=== PATIENT | female | born 1970 | race Caucasian/White ===

== ENCOUNTER 2016-11-02 23:19 | Emergency (ER) | payer BC ==
[2016-11-02] MEDS ORDERED: NS 0.9% 1000 ML* 1,000 ML IV ONE (23:54)
[2016-11-02] MEDS ORDERED: Ondansetron INJ* 2 MG/ML VIAL IV ONE (23:54)
[2016-11-02] MEDS ORDERED: Morphine INJ* 2 MG/ML 1 ML SYRINGE IV ONE (23:54)
[2016-11-03 00:22] LABS: Hematocrit 44 % (35-47); Hemoglobin 15.3 g/dl (12.0-16.0); Mean Corpuscular HGB Conc 35 g/dl (31-36); Mean Corpuscular Hemoglobin 33 pg (27-31); Mean Corpuscular Volume 95 fL (80-97); Mean Platelet Volume 7 um3 (7.4-10.4); Red Blood Count 4.61 10^6/ul (4.0-5.4); Red Cell Distribution Width 12 % (10.5-15); White Blood Count 11.2 10^3/ul (3.5-10.8)
--- NOTE | 2016-11-03 00:35 | ED ---
Garrison King Thomas, scribed for Felix Fernandez MD on 11/02/16 at 2357 . Abdominal Pain/Female - HPI Summary HPI Summary: The pt is a 46 y/o F presenting to the ED c/o 12/04 RUQ abd pain that began today at 10:00. She was not exerting at onset, and it has worsened since onset. She denies nausea at this time. She took ibuprofen BANQUET CHEF for the pain. She claims that she had an endoscopy three months ago. NKDA. - History of Current Complaint Chief Complaint: EDFlankPain Stated Complaint: RIGHT FLANK PAIN Time Seen by Provider: 11/02/16 23:52 Hx Obtained From: Patient Hx Last Menstrual Period: 11/29/15 Onset/Duration: Lasting Hours - onset 22:00 today, Still Present, Worse Since - onset Timing: Hours - onset 22:00 Severity Currently: Severe Pain Intensity: 8 Pain Scale Used: 0-10 Numeric Location: Discrete At: RUQ Associated Signs and Symptoms: Negative: Nausea Allergies/Adverse Reactions: Allergies Allergy/AdvReac Type Severity Reaction Status Date / Time No Known Allergies Allergy Verified 11/02/16 23:45 PMH/Surg Hx/FS Hx/Imm Hx Previously Healthy: No Endocrine/Hematology History: Denies: Hx Anticoagulant Therapy, Hx Diabetes, Hx Thyroid Disease Cardiovascular History: Denies: Hx Hypertension, Hx Pacemaker/ICD Respiratory History: Denies: Hx Asthma, Hx Chronic Obstructive Pulmonary Disease (COPD) GI History: Reports: Other GI Disorders - "gall bladder problem" History: Denies: Hx Renal Disease Sensory History: Denies: Hx Hearing Aid Neurological History: Denies: Hx Dementia, Hx Seizures, Other Neuro Impairments/Disorders Psychiatric History: Denies: Hx Panic Disorder, Hx Substance Abuse - Surgical History Surgery Procedure, Year, and Place: TUBAL Infectious Disease History: No Infectious Disease History: Denies: Hx Hepatitis, Hx Human Immunodeficiency Virus (HIV), Traveled Outside the [place] in Last 30 Days - Family History Known Family History: Positive: Hypertension - Social History Alcohol Use: None Substance Use Type: Reports: None Smoking Status (MU): Heavy Every Day Tobacco Smoker Type: Cigarettes Amount Used/How Often: 1/2 - 3/4 ppd Review of Systems Constitutional: Negative Negative: Fever Eyes: Negative ENT: Negative Cardiovascular: Negative Respiratory: Negative Positive: Abdominal Pain - RUQ, 12/04, onset today at 22:00. Negative: Nausea Genitourinary: Negative Musculoskeletal: Negative Skin: Negative Neurological: Negative Psychological: Normal All Other Systems Reviewed And Are Negative: Yes Physical Exam Triage Information Reviewed: Yes Vital Signs On Initial Exam: Initial Vitals Temp Pulse Resp BP Pulse Ox 98.6 F 85 16 146/101 100 11/02/16 23:27 11/02/16 23:27 11/02/16 23:27 11/02/16 23:27 11/02/16 23:27 Vital Signs Reviewed: Yes Appearance: Positive: Well-Appearing, Pain Distress - mild discomfort Skin: Positive: Warm Head/Face: Positive: Normal Head/Face Inspection Eyes: Positive: ANTONIO ENT: Positive: Hearing grossly normal Neck: Positive: Supple Respiratory/Lung Sounds: Positive: Breath Sounds Present Cardiovascular: Positive: RRR Abdomen Description: Positive: Soft, Other: - mild diffuse abd tenderness. Negative: Distended, Guarding Bowel Sounds: Positive: Present Musculoskeletal: Positive: Strength/ROM Intact Neurological: Positive: Alert, Oriented to Person Place, Time Psychiatric: Positive: Affect/Mood Appropriate Diagnostics - Vital Signs Vital Signs Temp Pulse Resp BP Pulse Ox 11/02/16 23:43 98.6 F 75 18 147/83 98 11/02/16 23:27 98.6 F 85 16 146/101 100 - Laboratory Lab Results: Lab Results 11/03/16 Range/Units 00:03 WBC 11.2 H (3.5-10.8) 10^3/ul RBC 4.61 (4.0-5.4) 10^6/ul Hgb 15.3 (12.0-16.0) g/dl Hct 44 (35-47) % MCV 95 (80-97) fL MCH 33 H (27-31) pg MCHC 35 (31-36) g/dl RDW 12 (10.5-15) % Plt Count 305 (150-450) 10^3/ul MPV 7 L (7.4-10.4) um3 Neut % (Auto) 55.9 (38-83) % Lymph % (Auto) 34.7 (25-47) % Crenshaw % (Auto) 7.1 (1-9) % Eos % (Auto) 1.7 (0-6) % Baso % (Auto) 0.6 (0-2) % Absolute Neuts (auto) 6.2 (1.5-7.7) 10^3/ul Absolute Lymphs (auto) 3.9 (1.0-4.8) 10^3/ul Absolute Monos (auto) 0.8 (0-0.8) 10^3/ul Absolute Eos (auto) 0.2 (0-0.6) 10^3/ul Absolute Basos (auto) 0.1 (0-0.2) 10^3/ul Absolute Nucleated RBC 0.01 10^3/ul Nucleated RBC % 0.1 Result Diagrams: 11/03/16 00:03 11/03/16 00:03 Lab Statement: Any lab studies that have been ordered have been reviewed, and results considered in the medical decision making process. - CT CT Abd/Pel CT Interpretation: Positive (See Comments) - Cholelithiasis. A calculus is noted in the gallbladder neck/cystic duct. No mural thickening or pericholecystic fluid noted. No inflammatory process of the abdomen or pelvis. No abdominal mass, adenopathy, or collection seen. CT Interpretation Completed By: Radiologist Re-Evaluation - Re-Evaluation First Eval Re-Evaluation Time: 03:17 Change: Unchanged Second Eval Re-Evaluation Time: 04:11 Change: Improved - essentially pain free, tolerating po Abdominal Pain Fem Course/Dx - Diagnoses Provider Diagnoses: Biliary colic Discharge - Discharge Plan Condition: Improved Disposition: HOME Patient Education Materials: Biliary Colic (ED) Referrals: [facility] [place] [facility]FERRAL [Outside] - 3 Days The documentation as recorded by the Garrison moreno Thomas accurately reflects the service I personally performed and the decisions made by , Felix Fernandez MD.
[2016-11-03 00:36] LABS: Albumin 4.2 g/dL (3.2-5.2); BUN/Creatinine Ratio 15.4 (8-20); C Reactive Protein 3.13 mg/L (< 5.00); Calcium 9.2 mg/dL (8.6-10.3); EGFR African American 86.4 (>60); EGFR Non-African American 67.2 (>60); Globulin 2.7 g/dL (2-4); Potassium 3.5 mmol/L (3.5-5.0); Total Bilirubin 0.3 mg/dL (0.2-1.0); Total Protein 6.9 g/dL (6.4-8.9)
[2016-11-03] MEDS ORDERED: Morphine INJ* 4 MG/ML 1 ML SYRINGE IV ONE (01:06)
[2016-11-03] MEDS ORDERED: NS 0.9% 1000 ML* 1,000 ML IV ONE (01:07)
[2016-11-03] MEDS ORDERED: Iohexol 300* (CONTRAST) 10 ML SDV IV ONE (01:25)
[2016-11-03] MEDS ORDERED: HYDROmorphone* 1 MG/ML 1 ML SYR IV SLOW PU ONE (03:09)
[2016-11-03 03:10] LABS: Urine Bilirubin Negative (Negative); Urine Glucose Negative (Negative); Urine Nitrite Negative (Negative)
[2016-11-03 04:15] VITALS: BP 115/78
--- NOTE | 2016-11-03 07:45 | RAD ---
CLINICAL HISTORY: Abdominal pain COMPARISON: None TECHNIQUE: Multiple contiguous axial CT scans were obtained of the abdomen and pelvis after the administration of intravenous contrast. Coronal and sagittal multiplanar reformations are submitted for review. Oral contrast was administered. Delayed images were obtained through the abdomen and pelvis. FINDINGS: LUNG BASES: The lung bases are clear. LIVER: The liver is diffusely low in attenuation compared to the spleen. There are multiple low-attenuation hepatic parenchymal lesions that are too small to definitively characterize. BILE DUCTS: There is no intrahepatic or extrahepatic biliary dilatation. GALLBLADDER: Multiple gallstones are noted. This includes a calculus at the gallbladder neck. There is no pericholecystic inflammatory change. PANCREAS: The pancreas is normal, without mass or ductal dilatation. SPLEEN: Normal in size and appearance. UPPER GI TRACT: Evaluation of the gastrointestinal tract is limited by incomplete gastric distention. The upper GI tract is unremarkable. SMALL BOWEL AND MESENTERY: The small bowel is normal in contour, course, and caliber. There is no obstruction or dilatation. COLON: The colon is normal in contour, course, caliber. There is no pericolonic inflammatory change. There is a tubular, vermiform, hollow viscus that is blind ending, and originates from the cecum, consistent with a normal appendix. There is no periappendiceal inflammatory change. This is best seen on coronal images 36 through 49. ADRENALS: Normal bilaterally. KIDNEYS: The kidneys are normal in shape, size, contour, and axis. There is no hydronephrosis or nephrolithiasis. BLADDER: The bladder is smooth in contour. PELVIC ORGANS: The uterus and adnexa are grossly normal for technique. AORTA: The aorta is normal. IVC: Unremarkable LYMPH NODES: There is no lymphadenopathy by size criteria. ABDOMINAL WALL: There is no evidence for abdominal wall hernia. BONES AND SOFT TISSUES: There are mild diffuse degenerative changes. OTHER: None IMPRESSION: 1. CHOLELITHIASIS WITHOUT PERICHOLECYSTIC INFLAMMATORY CHANGE TO SUGGEST ACUTE CHOLECYSTITIS. 2. FATTY INFILTRATION OF LIVER. 3. MULTIPLE LOW-ATTENUATION HEPATIC PARENCHYMAL LESIONS. THESE ARE TOO SMALL TO DEFINITIVELY CHARACTERIZE BUT, IN THE ABSENCE OF A HISTORY OF MALIGNANCY, THESE LIKELY REPRESENT SMALL CYSTS VERSUS HEMANGIOMAS
== END 2016-11-03 04:15 | disposition home or self-care (01) ==
LOC: ED 23:19
DX: K80.50 Calculus of bile duct without cholangitis or cholecystitis without obstruction (principal); R10.11 Right upper quadrant pain; F17.210 Nicotine dependence, cigarettes, uncomplicated
CPT/HCPCS: 36415; 74177; 80053; 81003; 83605; 83690; 85025; 86140; 96374; 96375; 99284; J1170; J2270; J2405; Q9967

== ENCOUNTER 2016-11-12 12:09 | Day surgery (SDC) | payer BC ==
[~2016-11-12 12:09] MED LIST: Buffered Lidocaine 0.9% SYRIN* 5 ML/SYR SYRINGE INTRADERM ONE; Bupivacaine 0.25% EPI 200,000* 30 ML SDV ONE; ceFAZolin 2 GM PREMIX(*) 2 GM/50 ML BAG IVPB ONE
[2016-11-12] MEDS ORDERED: Buffered Lidocaine 0.9% SYRIN* 5 ML/SYR SYRINGE ONE (12:10)
[2016-11-12] MEDS ORDERED: fentaNYL* 50 MCG/ML 2 ML VIAL (100 MCG VIAL) ONE ×2 (14:40→15:33)
[2016-11-12] MEDS ORDERED: Midazolam* 1 MG/ML 2 ML VIAL (2 MG) ONE (14:41)
[2016-11-12] MEDS ORDERED: Bupivacaine 0.25% EPI 200,000* 30 ML SDV ONE (14:48)
[2016-11-12] MEDS ORDERED: Lidocaine 2% PF * 5 ML VIAL ONE (15:07)
[2016-11-12] MEDS ORDERED: Propofol* 10 MG/ML 20 ML BTL IV PUSH ONE (15:07)
[2016-11-12] MEDS ORDERED: Ketorolac INJ* 30 MG/ML 1 ML VIAL ONE (15:07)
[2016-11-12] MEDS ORDERED: Rocuronium* 10 MG/ML VIAL ONE (15:07)
[2016-11-12] MEDS ORDERED: Famotidine IV* 10 MG/ML 2 ML (20 mg) ONE (15:07)
[2016-11-12] MEDS ORDERED: Dexamethasone IV* 4 MG/ML 1 ML (4 MG) ONE (15:07)
[2016-11-12] MEDS ORDERED: Desflurane* 240 ML INH ONE (15:23)
[2016-11-12] MEDS ORDERED: HYDROcodone/ACETAMIN 5-325 MG* 1 TAB PO PRN (15:26)
[2016-11-12] MEDS ORDERED: DiMENhydriNATE IV* 50 MG/ML VIAL IV PUSH PRN (15:26)
[2016-11-12] MEDS ORDERED: fentaNYL* 50 MCG/ML 2 ML VIAL (100 MCG VIAL) IV PRN (15:26)
[2016-11-12] MEDS ORDERED: PROCHLORPERAZINE INJ 5 MG/ML 2 ML VIAL IV PRN (15:26)
[2016-11-12] MEDS ORDERED: Ondansetron INJ* 2 MG/ML VIAL IV PRN (15:26)
[2016-11-12] MEDS ORDERED: Acetaminophen TAB* 325 MG PO PRN (15:26)
[2016-11-12] MEDS ORDERED: HYDROmorphone* 1 MG/ML 1 ML SYR IV PRN (15:26)
[2016-11-12] MEDS ORDERED: Labetalol IV* 5 MG/ML 20 ML VIAL ONE (16:07)
--- NOTE | 2016-11-12 16:27 | PN ---
Progress Note - Progress Note Date of Service: 11/12/16 Note: Brief Operative Note: Preop and Postop Dx: symptomatic cholelithiasis Procedure: laparoscopic cholecystectomy Anesthesia: GET Surgeon: Lila Asst: LUCILA Min; JONNY Christian EBL: < 20 ml Fluids: 1300 ml RL Drains:none Specimen: gallbladder Findings: dictated
[2016-11-12 17:29] VITALS: BP 117/78
--- NOTE | 2016-11-27 06:08 | OP ---
DATE OF OPERATION: 11/12/16 [facility] DATE OF : 74 SURGEON: Brennen Sharp MD APPLICATION SECURITY SPECIALIST: LUCILA Milligan ANESTHESIOLOGIST: Yakov Maxwell MD ANESTHESIA: General anesthesia. PRE-OP DIAGNOSIS: Symptomatic cholelithiasis. POST-OP DIAGNOSIS: Symptomatic cholelithiasis. OPERATIVE PROCEDURE: Laparoscopic cholecystectomy. ESTIMATED BLOOD LOSS: Less than 20 cc blood loss. FLUIDS: 1300 cc of lactated Ringers. SPECIMEN: Gallbladder. DRAINS: None. DESCRIPTION OF PROCEDURE: The patient was identified in the preoperative area, marked, brought to the operating room, placed on the operating table in the supine position. Preoperative antibiotics were given. Sequential devices were placed on bilateral lower extremities. General anesthesia was induced. The patient's abdomen was prepped and draped in the standard surgical fashion. A time-out was performed. Folds of the umbilicus were elevated anteriorly. A Veress needle was inserted into the abdominal cavity, which was then allowed to insufflate to a pressure of 15 mmHg. The patient tolerated the insufflation well. Incision was made over the Veress needle, which was then removed and then a 5-mm trocar inserted into the abdomen. Laparoscope was inserted through this, and there was no evidence of injury from the trocar incision or from the Veress needle. Review of the abdomen showed no other findings. The additional trocars were placed in the following position; a 12 mm in the subxiphoid area and two 5 mm along the right costal margin. Tables were repositioned. The fundus of the gallbladder was grasped and elevated above the liver. Infundibulum was grasped and retracted towards the right lower quadrant. This gave us critical view. Peritoneum off the lateral aspect of the gallbladder was taken with electrocautery. Medial aspect similarly taken. Cystic duct, cystic artery were isolated in a typical fashion. There were triply clipped and ligated. The gallbladder was removed from the liver bed, placed in an endoscopic retrieval bag and brought out through the subxiphoid port site. Review of the cystic duct stump and cystic artery showed no bleeding or bile. The abdomen was allowed to collapse. The patient was positioned back in neutral. Trocars were removed under direct vision. All 4 skin incisions were reapproximated with 4-0 Monocryl subcuticular sutures. Steri-Strips and sterile dressing were applied. The patient tolerated the procedure well and and transferred to the PACU in stable condition. [id number]/[facility] #: [id number] MTDD
== END 2016-11-12 17:45 | disposition home or self-care (01) ==
LOC: OR 12:09
PROVIDERS: ATTEND Surgery
DX: K80.10 Calculus of gallbladder with chronic cholecystitis without obstruction (principal); F17.200 Nicotine dependence, unspecified, uncomplicated
CPT/HCPCS: 88304; A9270-GY; J0690; J1100; J1885; J2250; J2704; J3010

== ENCOUNTER 2018-05-27 15:17 | Emergency (ER) | payer BC ==
[2018-05-27 15:26] VITALS: BP 148/90
[2018-05-27] MEDS ORDERED: Fluorescein Sodium TOPICAL* 1 MG TEST STRIP OPHTHALMIC ONE (15:33)
[2018-05-27] MEDS ORDERED: Tetracaine 0.5% OPTH.SOL 4 ML* 1 DROP BTL RIGHT EYE ONE (15:33)
--- NOTE | 2018-05-27 15:37 | UC ---
Eye Complaint HPI - HPI Summary HPI Summary: 47-year-old woman comes in with a chief complaint of right eye irritation. This started yesterday evening after she got home from work. 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 Not wear contacts. No blurry vision. The upper eyelid is swollen and she does have some crusting on her right eye this morning when she woke up. Crusting of better when she wiped it off. - History of Current Complaint Chief Complaint: UCEye Stated Complaint: EYE IRRITATION Time Seen by Provider: 05/27/18 15:28 Hx Last Menstrual Period: 05/12/18 Pain Intensity: 1 - Allergies/Home Medications Allergies/Adverse Reactions: Allergies Allergy/AdvReac Type Severity Reaction Status Date / Time No Known Allergies Allergy Verified 05/27/18 15:25 PMH/Surg Hx/FS Hx/Imm Hx Previously Healthy: Yes Other History Of: Negative For: Anticoagulant Therapy - Surgical History Surgical History: Yes Surgery Procedure, Year, and Place: TUBAL LIGATION, CHOLECYSTECTOMY - Family History Known Family History: Positive: Hypertension - Social History Alcohol Use: None Substance Use Type: None Smoking Status (MU): Current Every Day Smoker Type: Cigarettes Amount Used/How Often: 1 PPD Household Exposure Type: Cigarettes Review of Systems All Other Systems Reviewed And Are Negative: Yes Constitutional: Positive: Negative Skin: Positive: Negative Eyes: Positive: Drainage, Eye Redness, Other - SEE HPI ENT: Positive: Negative Respiratory: Positive: Negative Cardiovascular: Positive: Negative Gastrointestinal: Positive: Negative Motor: Positive: Negative Neurovascular: Positive: Negative Musculoskeletal: Positive: Negative Neurological: Positive: Negative Psychological: Positive: Negative Is Patient Immunocompromised?: No Physical Exam Triage Information Reviewed: Yes Appearance: Well-Appearing, No Pain Distress, Well-Nourished Vital Signs: Initial Vital Signs Temp 97.9 F 05/27/18 15:20 Pulse 83 05/27/18 15:20 Resp 16 05/27/18 15:20 BP 148/90 05/27/18 15:20 Pulse Ox 100 05/27/18 15:20 Vital Signs Reviewed: Yes Eyes: Positive: Conjunctiva Inflamed, Discharge, Other: - The upper eyelid is slightly swollen. No obvious stye at this time. There is clear drainage. Scleral injection.PERRLA/EOMI. used tetracaine to numb the eye and used foreseen stain and I did not see any uptake or any foreign body on my examination. ENT: Positive: Normal ENT inspection. Negative: Nasal congestion, Nasal drainage Neck exam: Normal Neck: Positive: Supple Respiratory: Positive: No respiratory distress Musculoskeletal Exam: Normal Musculoskeletal: Positive: Strength Intact, ROM Intact Neurological Exam: Normal Neurological: Positive: Alert, Muscle Tone Normal Psychological Exam: Normal Psychological: Positive: Normal Response To Family, Age Appropriate Behavior Skin Exam: Normal Eye Complaint Course/Dx - Course Course Of Treatment: I did not see any corneal abrasion however given the history is the most likely cause of the patient's eye irritation and discharge. Other possibilities include an early stye or a and infectious conjunctivitis. The treat with tobramycin eyedrops. We discussed that if the eyelid swells more in appearance stye that she can use warm compresses. Overall if her eye is not getting better she will follow up with ophthalmology. - Differential Dx/Diagnosis Provider Diagnosis: Conjunctivitis Discharge - Sign-Out/Discharge Documenting (check all that apply): Patient Departure All imaging exams completed and their final reports reviewed: No Studies - Discharge Plan Condition: Stable Disposition: HOME Prescriptions: Tobramycin 0.3% OPHTH.LYNDSEY* 1 drop RIGHT EYE Q4H #1 btl Patient Education Materials: Conjunctivitis (ED) Referrals: [facility] [Provider Group] Additional Instructions: FOLLOW UP WITH OPHTHALMOLOGY IF NOT COMPLETELY IMPROVED. GET RECHECKED SOONER WITH ANY WORSENING OF YOUR CONDITION OR QUESTIONS OR CONCERNS. - Billing Disposition and Condition Condition: STABLE Disposition: Home
== END 2018-05-27 16:10 | disposition home or self-care (01) ==
LOC: UCEAST 15:17
DX: H10.9 Unspecified conjunctivitis (principal); F17.210 Nicotine dependence, cigarettes, uncomplicated
CPT/HCPCS: 99212; A9270-GY; G0463

== ENCOUNTER 2018-12-26 11:05 | Emergency (ER) | payer BC ==
--- NOTE | 2018-12-26 11:08 | UC ---
Lower Extremity/Ankle HPI - HPI Summary HPI Summary: 48 yo female presents with LEFT heel and foot pain. She tells me that over the last 1-2 weeks she has had worsening left heel pain that is worse with prolonged standing or walking. Pain with dorsiflexion. 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 Has not taken anything OTC for her symptoms. Pain does improve with rest. Denies numbness, tingling, or specific injury. - History of Current Complaint Stated Complaint: FOOT COMPLAINT Time Seen by Provider: 12/26/18 11:08 Hx Obtained From: Patient Hx Last Menstrual Period: 05/12/18 Onset/Duration: Gradual Onset Severity Initially: Mild Severity Currently: Moderate Pain Intensity: 7 Pain Scale Used: 0-10 Numeric Aggravating Factor(s): Standing, Ambulation Alleviating Factor(s): Rest, Elevation Able to Bear Weight: Yes - Allergies/Home Medications Allergies/Adverse Reactions: Allergies Allergy/AdvReac Type Severity Reaction Status Date / Time No Known Allergies Allergy Verified 12/26/18 11:11 Home Medications: Home Medications NK [No Home Medications Reported] 12/26/18 [History Confirmed 12/26/18] PMH/Surg Hx/FS Hx/Imm Hx - Additional Past Medical History Additional PMH: None Other History Of: Negative For: Anticoagulant Therapy - Surgical History Surgical History: Yes Surgery Procedure, Year, and Place: TUBAL LIGATION, CHOLECYSTECTOMY - Family History Known Family History: Positive: Hypertension - Social History Lives: With Family Alcohol Use: None Substance Use Type: None Smoking Status (MU): Current Every Day Smoker Type: Cigarettes Amount Used/How Often: 1 PPD Household Exposure Type: Cigarettes Review of Systems All Other Systems Reviewed And Are Negative: No Constitutional: Positive: Negative Skin: Positive: Negative Respiratory: Positive: Negative Cardiovascular: Positive: Negative Neurovascular: Positive: Negative Musculoskeletal: Positive: Other: - Left foot pain Neurological: Positive: Negative Psychological: Positive: Negative Physical Exam - Summary Physical Exam Summary: GENERAL: NAD. WDWN. No pain distress. SKIN: No rashes, sores, lesions, or open wounds. CHEST: No accessory muscle use. Breathing comfortably and in no distress. CV: Pulses intact PT and DP. Cap refill <2seconds MSK: LEFT FOOT: Moderate TTP about plantar heel and plantar fascia. Pain with extension of toes. Pain with dorsiflexion at ankle. No edema or obvious bony deformities. NEURO: Alert. Sensations intact and symmetric B/L LEs PSYCH: Age appropriate behavior. Triage Information Reviewed: Yes Vital Signs: Vital Signs: Temp Pulse Resp BP Pulse Ox 98 F 85 18 152/93 100 12/26/18 11:08 12/26/18 11:08 12/26/18 11:08 12/26/18 11:08 12/26/18 11:08 Vital Signs Reviewed: Yes Lower Extremity Course/Dx - Course Course Of Treatment: Suspect plantar fasciitis. Pt was placed in a CAM boot. Advised to RICE and take ibuprofen for discomfort. F/u with Ortho if symptoms do not improve - Differential Dx/Diagnosis Provider Diagnosis: Plantar fasciitis Discharge ED - Sign-Out/Discharge Documenting (check all that apply): Patient Departure All imaging exams completed and their final reports reviewed: No Studies - Discharge Plan Condition: Stable Disposition: HOME Patient Education Materials: Plantar Fasciitis Exercises (GEN), Plantar Fasciitis (ED) Referrals: No Primary Care Phys,NOPCP [Primary Care Provider] - Maksim Vizcarra MD [Medical Doctor] - If Needed Additional Instructions: If you develop a fever, shortness of breath, chest pain, new or worsening symptoms - please call your PCP or go to the ED immediately. Your blood pressure was high at todays visit. Please see your primary provider within 4 weeks for recheck and re-evaluation. Rest, Ice, and elevate your foot as much as possible Use the walking boot when on your feet for long periods of time for at least 2 weeks If your symptoms do not improve after 2 weeks - please call Orthopedics at the number below to schedule an appointment for further evaluation - Billing Disposition and Condition Condition: STABLE Disposition: Home - Attestation Statements Provider Attestation: I was available for consult. This patient was seen by the LUIS. The patient was not presented to, seen by, or examined by me. -Damir
[2018-12-26 11:11] VITALS: BP 152/93
== END 2018-12-26 11:55 | disposition home or self-care (01) ==
LOC: UCEAST 11:05
DX: M72.2 Plantar fascial fibromatosis (principal); F17.210 Nicotine dependence, cigarettes, uncomplicated
CPT/HCPCS: 99212; G0463